=== PATIENT | male | born 1990 | race Caucasian/White ===

== ENCOUNTER 2017-08-30 01:56 | Emergency (ER) | payer SELFPAY ==
[2017-08-30] MEDS ORDERED: Lidocaine 1% PF 5 ML VIAL ONE (02:12)
== END 2017-08-30 02:42 | disposition home or self-care (01) ==
LOC: EDBD 01:56 → ERS 01:56
DX: L02.511 Cutaneous abscess of right hand (principal)
CPT/HCPCS: 10060; J2001

== ENCOUNTER 2020-01-07 18:28 | Emergency (ER) | payer SELFPAY | END 2020-01-07 19:45 | disposition home or self-care (01) | LOC: ERS 18:28 | DX: K03.81 Cracked tooth (principal); K04.7 Periapical abscess without sinus; K02.9 Dental caries, unspecified | CPT/HCPCS: 99282 ==

== ENCOUNTER 2021-05-28 23:53 | Emergency (ER) | payer SELFPAY ==
[2021-05-29] MEDS ORDERED: Sulfameth/Trimethoprim DS 800-160mg TAB ONE (01:00)
== END 2021-05-29 01:03 | disposition home or self-care (01) ==
LOC: ERS 23:53
DX: L03.116 Cellulitis of left lower limb (principal)
CPT/HCPCS: 99283